=== PATIENT | male | born 1965 | race Caucasian/White ===

== ENCOUNTER 2019-03-15 22:56 | Emergency (ER) | payer BC ==
[~2019-03-15] VITALS: Ht 193 cm; Wt 114.1 kg
[2019-03-16 01:15] VITALS: BP 109/74
== END 2019-03-16 01:11 | disposition home or self-care (01) ==
LOC: ED 03-16 00:12
DX: I48.2 Chronic atrial fibrillation (principal); R00.2 Palpitations
CPT/HCPCS: 36415; 80048; 80307; 82040; 83735; 84484; 85025; 93005; 96374; 96375